=== PATIENT | female | born 1960 | race Caucasian/White ===

== ENCOUNTER 2021-06-04 21:38 | Emergency (ER) | payer OTHER, MEDICARE ==
[~2021-06-04] VITALS: Ht 157.5 cm; Wt 55.9 kg
[2021-06-04 23:03] LABS: BASOPHILS % (AUTO) 0.2 % (0-1); EOSINOPHILS % (AUTO) 0 % (0-6); HEMATOCRIT 37.8 % (35.0-45.0); HEMOGLOBIN 12.9 g/dl (12.0-16.0); LYMPHOCYTES # (AUTO) 1.2 X10'3 (1.1-4.8); LYMPHOCYTES % (AUTO) 20.7 % (21-51); MEAN CORPUSCULAR HEMOGLOBIN 31.1 PG (27.0-31.0); MEAN CORPUSCULAR HGB CONC 34.2 g/dL (33.0-36.5); MEAN PLATELET VOLUME 9.2 FL (7.4-10.4); MONOCYTES # (AUTO) 0.3 X10'3 (0-0.9); MONOCYTES % (AUTO) 5.3 % (2-12); NEUTROPHILS # (AUTO) 4.2 X10'3 (1.8-7.7); NEUTROPHILS % (AUTO) 73.8 % (42-75); PLATELET COUNT 289 X10'3 (140-440); RED BLOOD COUNT 4.16 X10'6 (4.20-5.60); RED CELL DISTRIBUTION WIDTH 12.6 % (11.5-14.5); WHITE BLOOD COUNT 5.7 X10'3 (4.5-11.0)
[2021-06-04 23:11] LABS: GLUCOSE 117 MG/DL (70-104)
[2021-06-04 23:12] LABS: ANION GAP 14 (8-16); BILIRUBIN,TOTAL 1.9 MG/DL (0.1-1.0); BLOOD UREA NITROGEN 23 MG/DL (7-18); BUN/CREATININE RATIO 31.5 (6.6-38.0); CALCIUM 8.8 MG/DL (8.5-10.1); CHLORIDE 103 MMOL/L (99-107); CREATININE 0.73 MG/DL (0.40-0.90); SODIUM 142 MMOL/L (135-145); TOTAL CARBON DIOXIDE 25.3 MMOL/L (24-32); eGFR 81 ML/MIN
[2021-06-04 23:13] LABS: ALANINE AMINOTRANSFERASE 13 U/L (12-78); ALBUMIN 4.1 G/DL (3.4-5.0); ALBUMIN/GLOBULIN RATIO 1.1 (1.1-1.5); ALKALINE PHOSPHATASE 59 IU/L (46-116); ASPARTATE AMINO TRANSFERASE 14 U/L (10-37); C-REACTIVE PROTEIN 0.05 MG/DL (0.0-0.5); LACTATE DEHYDROGENASE 165 U/L (81-234); TOTAL PROTEIN 7.8 G/DL (6.4-8.2)
[2021-06-04 23:15] LABS: POTASSIUM 2.5 MMOL/L (3.5-5.1)
[2021-06-04] MEDS ORDERED: potassium Cl 20 mEq SR tablet PO ONE (23:20)
[2021-06-04] MEDS ORDERED: potassium Cl 10 mEq/100mL bag IV ONE (23:20)
[2021-06-04] MEDS ORDERED: normal saline 1000ml 1,000 ML IV ONE (23:20)
[2021-06-04] MEDS ORDERED: ondansetron/PF 4mg/2ml inj IV ONE (23:20)
[2021-06-04 23:27] LABS: CLARITY,URINE SLIGHTLY CLOUDY (Clear); COLOR,URINE YELLOW (Yellow); GLUCOSE, URINE NEGATIVE (Neg); KETONES,URINE >=80 mg/dl (Neg); LEUKOCYTE ESTERASE ,URINE SMALL (Neg); NITRITES, URINE NEGATIVE (Neg); OCCULT BLOOD,URINE TRACE-INTACT (Neg); PROTEIN,URINE TRACE mg/dl (Neg); UA COLLECTION TYPE CLN CATCH MIDSTREAM; UROBILINOGEN,URINE 0.2 E.U/dL (0.2-1.0)
[2021-06-04 23:31] LABS: BACTERIA,URINE FEW /HPF (Neg); HYALINE CASTS 0-3 /LPF (NEGATIVE); MUCUS STRANDS MANY /LPF (Neg); SQUAMOUS EPITHELIAL CELL,UR FEW /LPF (FEW); TRANSITIONAL EPI CELLS,URINE FEW /HPF
[2021-06-04] MEDS ORDERED: POTA-192 PO (23:41)
[2021-06-04] MEDS ORDERED: ONDA4TAB6 PO (23:41)
[2021-06-04 23:43] VITALS: BP 150/83
[2021-06-04] MEDS ORDERED: NITR100C6 PO (23:49)
[2021-06-05] MEDS ORDERED: acetaminophen 325mg tablet PO ONE (00:05)
[2021-06-05] MEDS ORDERED: magnesium oxide 400mg tablet PO ONE (00:05)
[2021-06-05 00:12] LABS: MAGNESIUM 2.4 MG/DL (1.5-2.4); TROPONIN I < 0.04 NG/ML (0.0-0.05)
[2021-06-05] MEDS ORDERED: diphenhydrAMINE 50 mg/ml inj IM ONE (00:20)
[2021-06-05] MEDS ORDERED: proCHLORperazine 10 MG/2 ml inj IV ONE (00:20)
[2021-06-05] MEDS ORDERED: normal saline 1000ml 1,000 ML IV ONE (00:35)
== END 2021-06-05 01:50 | disposition home or self-care (01) ==
LOC: ER 21:39
DX: B34.9 Viral infection, unspecified (principal); Z20.822 Contact with and (suspected) exposure to COVID-19; K29.70 Gastritis, unspecified, without bleeding; E87.6 Hypokalemia; N39.0 Urinary tract infection, site not specified; Z88.8 Allergy status to other drugs, medicaments and biological substances; Z79.899 Other long term (current) drug therapy
CPT/HCPCS: 36415; 71045; 80053; 81001; 83605; 83615; 83735; 84145; 84484; 85025; 86140; 87040; 87088; 87502; 87503; 87635; 96361; 96372; 96374; 96375; 99284; C9803; J0780; J1200; J2405; J3480; J7030